=== PATIENT | female | born 1995 | race African-American/Black ===

== ENCOUNTER 2021-11-03 17:20 | Emergency (ER) | payer SELFPAY ==
[2021-11-04 16:17] LABS: SARS-CoV-2 PCR by NAA Not Detected (NotDetected)
== END 2021-11-03 21:02 | disposition home or self-care (01) ==
LOC: CSHERS 17:20
DX: J01.90 Acute sinusitis, unspecified (principal); H66.91 Otitis media, unspecified, right ear; E11.9 Type 2 diabetes mellitus without complications; Z20.822 Contact with and (suspected) exposure to COVID-19
CPT/HCPCS: 87081; 87430; 87804; 99283; U0003; U0005